=== PATIENT | female | born 2000 | race Two or more races ===

== ENCOUNTER 2021-02-24 22:46 | Emergency (ER) | payer OTHER ==
[~2021-02-24] VITALS: Ht 152.4 cm; Wt 43.1 kg
[2021-02-25] MEDS ORDERED: CEPHALEXIN500 MG PO (02:18)
[2021-02-25] MEDS ORDERED: KETO10TA2 PO (02:18)
== END 2021-02-25 02:25 ==
LOC: ER 22:46
DX: S01.419A Laceration without foreign body of unspecified cheek and temporomandibular area, initial encounter (principal); W18.30XA Fall on same level, unspecified, initial encounter; Y92.89 Other specified places as the place of occurrence of the external cause